=== PATIENT | male | born 1955 | race Caucasian/White ===

== ENCOUNTER → 2018-08-19 | Outpatient (CLI) | payer OTHER ==
--- NOTE | 2018-08-20 08:58 | PCVCIMAG ---
APPROVED REPORT Study performed: 08/19/2018 09:38:58 EXAM: Comprehensive 2D, Doppler, and color-flow Echocardiogram Patient Location: Echo lab Status: routine BSA: 1.99 HR: 62 bpmBP: 160/100 mmHg Rhythm: NSR Other Information Study Quality: Good Risk Factors: Cardiac Risk Factors: HTN Indications Hypertension/HDD Mixed connective tissue disease. 2D Dimensions IVSd: 10.41 (7-11mm)LVOT Diam: 20.19 (18-24mm) LVDd: 50.61 mm PWd: 11.17 (7-11mm)Ascending Ao: 38.47 (22-36mm) LVDs: 31.04 (25-40mm) Left Atrium: 27.65 (27-40mm) Aortic Root: 34.08 mm LV Single Plane 4CH: 57.91 % LV Single Plane 2CH: 57.68 % Biplane EF: 57.7 % Volumes Left Atrial Volume (Systole) Single Plane 4CH: 73.59 mLSingle Plane 2CH: 48.49 mL LA ESV Index: 33.00 mL/m2 Aortic Valve AoV Peak Donnie.: 3.46 m/s AO Peak Gr.: 47.75 mmHgLVOT Max P.46 mmHg AO Mean Gr.: 27.35 mmHgLVOT Mean P.97 mmHg AO V2 Mean: 2.48 m/sLVOT Max V: 0.93 m/s AO V2 VTI: 85.91 cm CAMILLE (VTI): 0.91 [id number] V1 VTI: 24.52 cm [place] Vmax: 0.86 cm2 AI Vmax: 5.25 m/s AI Person: 3.21 m/s2 AI PHT: 478.07 ms TDI Medial E' Donnie.: 0.10 m/s Lateral E' Donnie.: 0.09 m/s Pulmonary Valve PV Peak Gr.: 4.97 mmHg Pulmonary Vein P Vein S: 0.59 m/sP Vein A: 0.32 m/s P Vein D: 0.69 m/sP Vein A Dur.: 110.7 msec P Vein S/D Ratio: 0.86 Tricuspid Valve TR Peak Donnie.: 3.10 m/s TR Peak Gr.: 38.51 mmHg Left Ventricle The left ventricle is normal size. There is normal LV segmental wall motion. There is normal left ventricular wall thickness. Left ventricular systolic function is normal. The left ventricular ejection fraction is within the normal range. LVEF is 60-65%. The left ventricular diastolic function is normal. Right Ventricle The right ventricle is normal size. The right ventricular systolic function is normal. Atria The left atrium size is normal. The right atrium size is normal. Aortic Valve Aortic valve leaflets are moderately thickened. Peak Aortic gradient is 48mmHg. Mean gradient is 27mmHg. Aortic Valve Area is .9cm2. Bicuspid appearance Mild to moderate aortic regurgitation. There is no aortic valvular stenosis. Mitral Valve The mitral valve is normal in structure. Trace to mild mitral regurgitation. No evidence of mitral valve stenosis. Tricuspid Valve The tricuspid valve is normal in structure. Trace tricuspid regurgitation. Pulmonary artery pressue is 34mmHg. Pulmonic Valve The pulmonary valve is normal in structure. There is no pulmonic valvular regurgitation. Great Vessels The aortic root is normal in size. IVC is normal in size and collapses >50% with inspiration. Pericardium There is no pericardial effusion. <Conclusion> The left ventricle is normal size. LVEF is 60-65%. Aortic valve leaflets are moderately thickened. Peak Aortic gradient is 48mmHg. Mean gradient is 27mmHg. Aortic Valve Area is .9cm2. Bicuspid appearance Mild to moderate aortic regurgitation. The mitral valve is normal in structure. Trace to mild mitral regurgitation. The tricuspid valve is normal in structure. Trace tricuspid regurgitation. Pulmonary artery pressue is 34mmHg. The pulmonary valve is normal in structure. There is no pericardial effusion.
== END | disposition home or self-care (01) ==
LOC: PCVCIMAG 09:31
PROVIDERS: ATTEND Internal Medicine Rheumatology
DX: I06.1 Rheumatic aortic insufficiency (principal); R01.1 Cardiac murmur, unspecified
CPT/HCPCS: 93306